=== PATIENT | male | born 1965 | race Hispanic/Latino ===

== ENCOUNTER 2019-01-02 21:21 | Emergency (ER) | payer BC ==
[2019-01-02] MEDS ORDERED: LIDOCAINE 1% 2 ML VIAL INJ ONE (21:47)
--- NOTE | 2019-01-02 21:49 | ED.PDOC ---
History of Present Illness - General Chief Complaint: Upper Extremity Injury Stated Complaint: left upper arm pain with deet breath Time Seen by Provider: 01/02/19 21:48 Source: patient, family Exam Limitations: no limitations - History of Present Illness Initial Comments: patient comes in today for left shoulder pain with shortness of breath. Patient states he was working out this morning with weights and it was chest A. Patient started having some soreness in his left shoulder around the area of the medial scapular line. Patient states he was able to work throughout the day but as the day has progressed he's having a more difficult time with breathing. He denies any chest pain but states when he takes a great big deep breath he can't seem to do that without causing significant pain of the shoulder that radiates outward. He did have a long trip about 2 weeks ago when he went to [place]. He has no swelling of his lower extremities no cough or congestion. He denies any fever or chills. He is otherwise very healthy although he does take a pill for blood pressure control. Patient has had no known drug allergies. Patient smokes occasionally but has no history of asthma or COPD. Occurred: this morning Pain - Upper Extremity: severe: Shoulder, left Method of Injury: unknown, sports injury - possible Improving Factors: nothing Worsening Factors: movement, other - deep breathing Allergies/Adverse Reactions: Allergies NO KNOWN ALLERGY Allergy (Verified 01/02/19 21:55) Home Medications: Ambulatory Orders Cyclobenzaprine HCl [Flexeril] 10 mg PO TID #15 tab 01/02/19 Lisinopril 10 mg PO DAILY 01/02/19 Omeprazole Magnesium [Prilosec Otc] 20 mg PO 01/02/19 Review of Systems - Review of Systems Constitutional: States: no symptoms reported. Denies: chills, fever, malaise EENTM: States: no symptoms reported. Denies: eye pain, double vision, ear discharge Respiratory: States: short of breath. Denies: cough, wheezing Cardiology: States: no symptoms reported. Denies: chest pain, edema, palpitations Gastrointestinal/Abdominal: States: no symptoms reported. Denies: abdominal pain, diarrhea, nausea, vomiting Musculoskeletal: States: see HPI Past Medical History (General) - Patient Medical History Hx Hypertension: Yes - Social History Hx Tobacco Use: Yes Family Medical History - Family History Father Living Status: Physical Exam - Physical Exam General Appearance: Alert, Comfortable, No apparent distress Eyes, Ears, Nose, Throat Exam: PERRL/EOMI, normal ENT inspection, TMs normal, pharynx normal Neck: non-tender, full range of motion, supple, normal inspection Cardiovascular/Respiratory: regular rate, rhythm, no M/R/G, normal peripheral pulses, no JVD, normal breath sounds, no respiratory distress Abdominal Exam: non-tender Back Exam: normal inspection, muscle spasm - TTP with reproduction of pain medial scapula edge on the left Shoulder Exam: normal inspection, non-tender, no evidence of injury Progress - Progress Progress: 01/02/19 22:02 1 cc of lidocaine injected at trigger point with no significant improvement of pain. Toradol and flexeril ordered and work up started. 01/02/19 23:01 patient continues with pain. Discussed his abnormal liver enzymes and he states he is taking supplements to build muscle and increase his testosterone as well as protein shakes. He also drinks a 12 pack on the weekend but rarely takes Tylenol. He understands that he will most likely need an ultrasound of his liver/gallbladder, hepatitis test and recheck on his liver. He understands that he should return to Er for increased pain, intractable emesis and is non tender in the abdomen at this time and denies and bloating or GERD after fatty meals. He was instructed to stop all ETOH, supplements, and Tylenol until his doctor can finish follow up and his liver normalizes. 01/02/19 23:08 - Results/Orders Results/Orders: 01/02/19 21:45 EKG STAT Laboratory Results WBC 5.4 K/mm3 (4.8-10.8) 01/02/19 22:10 RBC 4.36 M/mm3 (4.70-6.10) L 01/02/19 22:10 Hgb 13.4 gm/dL (14.0-18.0) L 01/02/19 22:10 Hct 39.7 % (42.0-52.0) L 01/02/19 22:10 MCV 91.0 fl (80.0-94.0) 01/02/19 22:10 MCH 30.7 pg (27.0-31.0) 01/02/19 22:10 MCHC 33.8 g/dL (33.0-37.0) 01/02/19 22:10 RDW 13.0 % (11.5-14.5) 01/02/19 22:10 Plt Count 183 K/mm3 (130-400) 01/02/19 22:10 MPV 8.8 fl (7.40-10.4) 01/02/19 22:10 Absolute Neuts (auto) 2.00 K/uL (1.8-6.8) 01/02/19 22:10 Absolute Lymphs (auto) 2.60 K/uL (1.0-3.4) 01/02/19 22:10 Absolute Monos (auto) 0.50 K/uL (0.2-0.8) 01/02/19 22:10 Absolute Eos (auto) 0.30 K/uL (0.0-0.4) 01/02/19 22:10 Absolute Basos (auto) 0.10 K/uL (0.0-0.1) 01/02/19 22:10 Neutrophils % 36.7 % (42.0-78.0) L 01/02/19 22:10 Lymphocytes % 48.0 % (20.0-50.0) 01/02/19 22:10 Monocytes % 9.5 % (2.0-9.0) H 01/02/19 22:10 Eosinophils % 4.8 % (1.0-5.0) 01/02/19 22:10 Basophils % 1.0 % (0.0-2.0) 01/02/19 22:10 D-Dimer, Quantitative 0.24 mg/L FEU (0-0.49) 01/02/19 22:10 Sodium 135 mmol/L (135-145) 01/02/19 22:10 Potassium 3.7 mmol/L (3.6-5.0) 01/02/19 22:10 Chloride 102 mmol/L (101-111) 01/02/19 22:10 Carbon Dioxide 24 mmol/L (21-31) 01/02/19 22:10 Anion Gap 12.7 (12-18) 01/02/19 22:10 BUN 25 mg/dL (7-18) H 01/02/19 22:10 Creatinine 0.69 mg/dL (0.6-1.3) 01/02/19 22:10 BUN/Creatinine Ratio 36.2 (10-20) H 01/02/19 22:10 Random Glucose 129 mg/dL (70-105) H 01/02/19 22:10 Serum Osmolality 276.2 mOsm/L (275-295) 01/02/19 22:10 Calcium 9.2 mg/dL (8.4-10.2) 01/02/19 22:10 Total Bilirubin 0.7 mg/dL (0.2-1.0) 01/02/19 22:10 AST 68 IU/L (10-42) H 01/02/19 22:10 ALT 61 IU/L (10-60) H 01/02/19 22:10 Alkaline Phosphatase 35 IU/L (42-121) L 01/02/19 22:10 Creatine Kinase 864 IU/L (38-174) H* 01/02/19 22:10 CK-MB (CK-2) 2.9 ng/mL (0.0-4.4) 01/02/19 22:10 CK-MB (CK-2) % Not Reportable 01/02/19 22:10 Troponin I < 0.02 ng/mL (0.01-0.05) 01/02/19 22:10 Serum Total Protein 7.9 gm/dL (6.4-8.2) 01/02/19 22:10 Albumin 4.3 g/dl (3.2-5.5) 01/02/19 22:10 Globulin 3.6 gm/dL (2.3-3.5) H 01/02/19 22:10 Albumin/Globulin Ratio 1.2 (1.1-1.9) 01/02/19 22:10 Patient Name: VAIBHAV SAL Gender: Male Date of : 1965 Referring Physician: TISH HUNTER Organization: [facility] Accession Number: [id number] Requested Date: January 02, 2019 21:58 Report Status: Final Requested Procedure: 1 Procedure Description: Chest,1 View Modality: CR Findings Reporting MD: Sunny Nina MD: Not available Dictation Time: Powder Coater: Not available 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 FINDINGS: The cardiomediastinal silhouette appears unremarkable. No consolidating infiltrates or pleural effusions. No pneumothorax. IMPRESSION: No acute abnormality is identified - EKG/XRAY/CT EKG: Sinus, no ST T wave changes Comments: HR 62 with normal axis Departure - Departure Clinical Impression: Abnormal liver enzymes Shoulder strain Qualifiers: Encounter type: initial encounter Laterality: left Qualified Code(s): S46.912A - Strain of unspecified muscle, fascia and tendon at shoulder and upper arm level, left arm, initial encounter Disposition: Discharge to Home or Self Care Condition: Fair Departure Forms: ED Discharge - Pt. Copy, Patient Portal Self Enrollment Instructions: DI for Arm Pain Referrals: AYANNA VACA IV, DISABILITY LIAISON OFFICER [Primary Care Provider] - 1-2 Weeks Prescriptions: Cyclobenzaprine HCl [Flexeril] 10 mg PO TID #15 tab Home Medications: Ambulatory Orders Cyclobenzaprine HCl [Flexeril] 10 mg PO TID #15 tab 01/02/19 Lisinopril 10 mg PO DAILY 01/02/19 Omeprazole Magnesium [Prilosec Otc] 20 mg PO 01/02/19 Additional Instructions: Follow up in clinic in 1-2 days for ultrasound of his liver/gallbladder, hepatitis test and recheck on his liver. return to Er for increased pain, intractable emesis. stop all ETOH, supplements, and Tylenol until his doctor can finish follow up and his liver normalizes. increase fluid intake and ice/alternate with heat to area.
[2019-01-02] MEDS ORDERED: CYCLOBENZAPRINE HCL 10 MG TAB PO ONE (21:58)
[2019-01-02] MEDS ORDERED: KETOROLAC TROMETHAMINE INJ 30 MG/ML VIAL IV ONE (21:58)
[2019-01-02 22:01] VITALS: TEMP 98
--- NOTE | 2019-01-02 22:20 | RAD ---
EXAM DESCRIPTION: Chest,1 View CLINICAL HISTORY: 53 years Male sob COMPARISON: None. FINDINGS: The cardiomediastinal silhouette appears unremarkable. No consolidating infiltrates or pleural effusions. No pneumothorax. IMPRESSION: No acute abnormality is identified. Electronically signed by: Sunny Nina MD 01/02/2019 10:18 PM CDT
[2019-01-02 23:23] VITALS: BP 152/93; O2SAT 99
== END 2019-01-02 23:23 | disposition home or self-care (01) ==
LOC: ER 21:21
DX: S46.912A Strain of unspecified muscle, fascia and tendon at shoulder and upper arm level, left arm, initial encounter (principal); R79.89 Other specified abnormal findings of blood chemistry; R06.02 Shortness of breath; I10 Essential (primary) hypertension; Z72.0 Tobacco use; Z79.899 Other long term (current) drug therapy; X58.XXXA Exposure to other specified factors, initial encounter; Y93.B3 Activity, free weights; Y92.9 Unspecified place or not applicable
CPT/HCPCS: 36415; 71045; 80053; 82550; 82553; 84484; 85025; 85379; 93005; J1885

== ENCOUNTER → 2019-01-03 | Outpatient (CLI) | payer BC | LOC: LAB.O 18:19 | PROVIDERS: ATTEND Nurse Practitioner Family | DX: R94.5 Abnormal results of liver function studies (principal) ==

== ENCOUNTER → 2019-01-05 | Outpatient (CLI) | payer BC, OTHER ==
--- NOTE | 2019-01-05 16:44 | US ---
EXAM DESCRIPTION: Liver: ULTRASOUND. CLINICAL HISTORY: R94.5 COMPARISON: None. TECHNIQUE: Transabdominal scannin-dimensional and Doppler modes. FINDINGS: Gallbladder: normal size, shape, echogenicity; no intraluminal stones or sludge. No fluid around the gallbladder. No wall thickening. 1.8 mm. Non-tender with transducer pressure. Common bile duct: caliber 3.3 mm within normal limits. Liver: normal echogenicity; contour liver capsule smooth where seen. No fluid around the liver. Intrahepatic biliary ducts normal caliber. Doppler hepatopedal flow portal vein. 1.1 cm. Long axis right lobe 17.6 cm. Pancreas: normal size and echogenicity. Duct not seen. Right kidney: long axis measures 10.7 cm. cm. No echogenicity. Normal cortical thickness. No hydronephrosis IMPRESSION: Unremarkable ultrasound of the right upper quadrant of the abdomen with no organomegaly. Gallbladder negative. Normal caliber of the ducts. No free fluid. Electronically signed by: Paul Marcelo MD 01/05/2019 4:42 PM CDT
== END ==
LOC: US 14:30
PROVIDERS: ATTEND Nurse Practitioner Family
DX: R94.5 Abnormal results of liver function studies (principal)

== ENCOUNTER 2020-01-03 14:00 | Emergency (ER) | payer BC ==
[2020-01-03 14:16] VITALS: TEMP 98.3
[2020-01-03] MEDS ORDERED: SODIUM CHLORIDE 0.9% (FLUSH) 10 ML SYG IV PRN (14:24)
--- NOTE | 2020-01-03 14:46 | ED.PDOC ---
History of Present Illness - General Chief Complaint: General Stated Complaint: "feel off"/neck pain Time Seen by Provider: 01/03/20 14:15 Source: patient, RN notes reviewed, Vital Signs reviewed Exam Limitations: no limitations - History of Present Illness Initial Comments: Patient is a 54-year-old male who presents from his doctor's office with complaints of not feeling right. Patient stated that for the last day he has been having tension and pressure in his shoulders neck and back that radiate to his chest. That he is feeling short of breath and is nauseated. The pain is moderate in intensity. Came on while he was resting. Is not exacerbated by exertion. Timing/Duration: 24 hours Severity: moderate Improving Factors: rest - Complete rest for at least 5 minutes Worsening Factors: nothing Associated Symptoms: nausea/vomiting - Nausea only, shortness of breath Allergies/Adverse Reactions: Allergies NO KNOWN ALLERGY Allergy (Verified 01/02/19 21:55) Home Medications: Ambulatory Orders Cyclobenzaprine HCl [Flexeril] 10 mg PO TID #15 tab 01/02/19 Lisinopril 10 mg PO DAILY 01/02/19 Omeprazole Magnesium [Prilosec Otc] 20 mg PO 01/02/19 Review of Systems - Review of Systems Constitutional: States: see HPI, malaise, weakness. Denies: chills, diaphoresis EENTM: States: no symptoms reported, see HPI. Denies: eye pain, blurred vision, double vision Respiratory: States: see HPI, short of breath. Denies: cough, stridor, wheezing Cardiology: States: see HPI, chest pain. Denies: palpitations, syncope Gastrointestinal/Abdominal: States: see HPI, nausea. Denies: abdominal pain, diarrhea, vomiting Genitourinary: States: no symptoms reported Musculoskeletal: States: see HPI, back pain, neck pain Skin: States: no symptoms reported. Denies: change in color, rash Neurological: States: no symptoms reported. Denies: anxiety, headache, numbness, paresthesia, tingling, tremors, weakness Endocrine: States: no symptoms reported Hematologic/Lymphatic: States: no symptoms reported Unable to Obtain Due To: condition All other Systems: Reviewed and Negative, No Change from Baseline Past Medical History (General) - Patient Medical History Hx Seizures: No Hx Stroke: No Hx Dementia: No Hx Asthma: No Hx of COPD: No Hx Cardiac Disorders: No Hx Congestive Heart Failure: No Hx Pacemaker: No Hx Hypertension: Yes Hx Thyroid Disease: No Hx Diabetes: No Hx Gastroesophageal Reflux: Yes Hx Renal Disease: No Hx Cancer: No Hx of HIV: No Hx Hepatitis C: No Hx MRSA: No Surgical History: no surgical history - Vaccination History Hx Tetanus, Diphtheria Vaccination: No Hx Influenza Vaccination: Yes Hx Pneumococcal Vaccination: No - Social History Hx Tobacco Use: Yes Hx Chewing Tobacco Use: No Hx Alcohol Use: No Hx Substance Use: No Hx Substance Use Treatment: No Hx Depression: No Hx Physical Abuse: No Hx Emotional Abuse: No Hx Suspected Abuse: No - Activities of Daily Living Hospice Agency (if applicable):: None - Female History Patient is a Female of Child Bearing Age (10 -59 yrs old): No - Triage Comment ED Triage Comment: pt voices "feeling off" since Tuesday. voices neck feels stiff and achy. pt denies SOB or chest pain. Family Medical History - Family History Father Living Status: Physical Exam - Physical Exam General Appearance: Alert, Anxious, Well Developed, Well Groomed, Well Hydrated, Well Nourished Eye Exam: bilateral normal Ears, Nose, Throat: hearing grossly normal, normal ENT inspection, normal pharynx Neck: non-tender, full range of motion, supple, normal inspection Respiratory: chest non-tender, lungs clear, normal breath sounds, no respiratory distress, no accessory muscle use Cardiovascular/Chest: normal peripheral pulses, regular rate, rhythm, no edema, no gallop, no JVD, no murmur Peripheral Pulses: radial,right: 2+, radial,left: 2+ Gastrointestinal/Abdominal: normal bowel sounds, non tender, soft Back Exam: normal inspection, no CVA tenderness, no vertebral tenderness Extremity: normal range of motion, non-tender, normal inspection Neurologic: mechanic foreman II-XII nml as tested, no motor/sensory deficits, alert, normal mood/affect, oriented x 3 Skin Exam: normal color, warm/dry Lymphatic: no adenopathy Progress - Progress Progress: 01/03/20 1425 Differential diagnosis: Dehydration, acute CA, aortic dissection, muscle strain among others. 01/03/20 16:09 Patient's lab work, EKGs and chest x-rays are returned. EKG and chest x-ray are completely normal. Lab work shows that he is got a mild rhabdo consistent with heat exhaustion. His CPK is over 400. He has some mild renal insufficiency which I believe is secondary to dehydration and not to rhabdomyolysis. Patient states that he drinks a lot of coffee in the morning as well as energy drinks at work and beer in the evening when he gets home. I explained to him all of this dehydrates him and that he needs to wean off the caffeinated beverages and alcohol and move toward water. Patient voices understanding as does his and agrees with the plan of care. Plan on discharge home at this time. Patient has a heart score of 2 and therefore is low risk and I will refer him back to his PCP for further cardiac work-up. Sunny Chamberlain M.D. #[id number] - Results/Orders Results/Orders: EXAM DESCRIPTION: Chest,1 View: CR/DR/XR. CLINICAL HISTORY: 54 years Male chest pain COMPARISON: Portable chest x-ray at 1003 hours today. TECHNIQUE: ONE VIEW PORTABLE. AP 1439 hours, upright position. FINDINGS: Lung volumes have decreased since the prior study this morning. No definite infiltrate. Monitoring leads on the chest. Heart size may be artifactually increased due to lack of inspiratory effort. Pulmonary vascularity is not increased. Electronic device around the neck soft tissues. IMPRESSION: Decreased inspiratory effort. Artifactually increased heart size. No new infiltrate. Pulmonary vascularity is not congested. Electronically signed by: Paul Marcelo MD 01/03/2020 3:06 PM CDT EKG performed 03 January 2020 at 1401 hrs.: Normal sinus rhythm at 86 bpm, normal axis deviation, no ST or T wave changes, normal EKG. No prior EKGs available for comparison at this time. 01/03/20 14:24 Sodium Chloride 0.9% (Flush) [Saline Flush Syringe] 3 ml IV PRN PRN 01/03/20 14:25 IV Care:Saline Lock per Protoc QSHIFT Telemetry ONCE 01/03/20 14:30 EKG STAT 01/03/20 15:03 Sodium Chloride 0.9% 1000ML [Ns 1000 ml] 1,000 ml IVS ONCE 01/04/20 09:00 Pulse Ox Daily Laboratory Results - last 24 hr 01/03/20 01/03/20 01/03/20 14:10 14:10 14:10 WBC 5.5 RBC 4.82 Hgb 14.8 Hct 42.4 MCV 88.1 MCH 30.7 MCHC 34.9 RDW 13.1 Plt Count 206 MPV 8.9 Absolute Neuts (auto) 2.90 Absolute Lymphs (auto) 2.10 Absolute Monos (auto) 0.30 Absolute Eos (auto) 0.10 Absolute Basos (auto) 0.00 Neutrophils % 53.1 Lymphocytes % 37.6 Monocytes % 6.4 Eosinophils % 2.2 Basophils % 0.7 PT 9.5 INR < 1.00 PTT (SP) 26.5 Sodium 137 Potassium 4.2 Chloride 104 Carbon Dioxide 24 Anion Gap 13.2 BUN 19 H Creatinine 1.18 BUN/Creatinine Ratio 16.1 Random Glucose 134 H Serum Osmolality 278.1 Calcium 9.6 Magnesium 2.0 Creatine Kinase 284 H* CK-MB (CK-2) 2.6 CK-MB (CK-2) % Not Reportable Troponin I < 0.02 B-Natriuretic Peptide < 5.0 TSH 1.22 Urine Color Urine Appearance Urine pH Ur Specific Hammond Urine Protein Urine Glucose (UA) Urine Ketones Urine Blood Urine Nitrite Urine Bilirubin Urine Urobilinogen Ur Leukocyte Esterase Urine RBC Urine WBC Ur Epithelial Cells Urine Bacteria Urine Mucus 01/03/20 15:30 WBC RBC Hgb Hct MCV MCH MCHC RDW Plt Count MPV Absolute Neuts (auto) Absolute Lymphs (auto) Absolute Monos (auto) Absolute Eos (auto) Absolute Basos (auto) Neutrophils % Lymphocytes % Monocytes % Eosinophils % Basophils % PT INR PTT (SP) Sodium Potassium Chloride Carbon Dioxide Anion Gap BUN Creatinine BUN/Creatinine Ratio Random Glucose Serum Osmolality Calcium Magnesium Creatine Kinase CK-MB (CK-2) CK-MB (CK-2) % Troponin I B-Natriuretic Peptide TSH Urine Color Yellow Urine Appearance Clear Urine pH 5.5 Ur Specific Hammond 1.025 Urine Protein Negative Urine Glucose (UA) Negative Urine Ketones Negative Urine Blood Negative Urine Nitrite Negative Urine Bilirubin Negative Urine Urobilinogen 0.2 Ur Leukocyte Esterase Negative Urine RBC 0 Urine WBC 1-3 Ur Epithelial Cells 0 Urine Bacteria 0 Urine Mucus Moderate Vital Signs 01/03/20 01/03/20 01/03/20 14:00 14:01 15:01 Temperature 98.3 F 98.3 F Pulse Rate 88 82 Pulse Rate [ 88 88 82 brachia] Respiratory 16 16 16 Rate Blood Pressure 159/98 143/89 [Left Arm] O2 Sat by Pulse 98 98 Oximetry Departure - Departure Clinical Impression: Dehydration after exertion, Exertional rhabdomyolysis, History of difficulty sleeping, Difficulty sleeping Neck strain Qualifiers: Encounter type: initial encounter Qualified Code(s): S16.1XXA - Strain of muscle, fascia and tendon at neck level, initial encounter Time of Disposition: 16:13 Disposition: Discharge to Home or Self Care Condition: Good Departure Forms: ED Discharge - Pt. Copy, Patient Portal Self Enrollment Instructions: Chest Pain (DC), Dehydration, Adult (DC), Rhabdomyolysis (DC), Insomnia (DC), Tips for Getting Better Sleep Diet: resume usual diet Activity: increase activity as tolerated Referrals: AYANNA VACA IV, ORE MIXER [Primary Care Provider] - 1-5 Days Home Medications: Ambulatory Orders Cyclobenzaprine HCl [Flexeril] 10 mg PO TID #15 tab 01/02/19 Lisinopril 10 mg PO DAILY 01/02/19 Omeprazole Magnesium [Prilosec Otc] 20 mg PO 01/02/19
[2020-01-03] MEDS ORDERED: SODIUM CHLORIDE 0.9% 1000ML 1,000 ML IVS ONE (15:03)
[2020-01-03] MEDS ORDERED: ONDANSETRON INJ 4 MG/2 ML VIAL IV ONE (15:04)
--- NOTE | 2020-01-03 15:07 | RAD ---
EXAM DESCRIPTION: Chest,1 View: CR/DR/XR. CLINICAL HISTORY: 54 years Male chest pain COMPARISON: Portable chest x-ray at 1003 hours today. TECHNIQUE: ONE VIEW PORTABLE. AP 1439 hours, upright position. FINDINGS: Lung volumes have decreased since the prior study this morning. No definite infiltrate. Monitoring leads on the chest. Heart size may be artifactually increased due to lack of inspiratory effort. Pulmonary vascularity is not increased. Electronic device around the neck soft tissues. IMPRESSION: Decreased inspiratory effort. Artifactually increased heart size. No new infiltrate. Pulmonary vascularity is not congested. Electronically signed by: Paul Marcelo MD 01/03/2020 3:06 PM CDT
[2020-01-03 16:29] VITALS: BP 123/78; O2SAT 99
== END 2020-01-03 16:29 | disposition home or self-care (01) ==
LOC: ER 14:00
DX: E86.0 Dehydration (principal); M62.82 Rhabdomyolysis; G47.00 Insomnia, unspecified; S16.1XXA Strain of muscle, fascia and tendon at neck level, initial encounter; F17.200 Nicotine dependence, unspecified, uncomplicated; X58.XXXA Exposure to other specified factors, initial encounter; Y92.9 Unspecified place or not applicable
CPT/HCPCS: 71045; 80048; 81001; 82550; 82553; 83880; 84443; 84484; 85025; 85610; 85730; 93005; 94760; J2405; J7030

== ENCOUNTER → 2020-03-21 | Outpatient (CLI) | payer BC | LOC: LAB.O 07:08 | PROVIDERS: ATTEND Registered Nurse General Practice | DX: R35.0 Frequency of micturition (principal) ==